=== PATIENT | male | born 1995 | race American Indian/Alaskan Native ===

== ENCOUNTER → 2016-12-03 | Outpatient (CLI) | payer OTHER ==
--- NOTE | 2016-12-06 00:14 | ECHO ---
DATE OF PROCEDURE: 12/03/2016 DATE OF : 1995 AGE: 21 REFERRING PROVIDER: Jarred Figueroa PATIENT LOCATION: Outpatient REASON FOR THE ECHOCARDIOGRAM: Heart murmur. 2D MEASUREMENTS: IVS: 0.85 cm LV: 4.6 cm LVPW: 0.88 cm LA: 3.3 cm Aorta: 2.7 cm IVC: 2.6 cm DOPPLER MEASUREMENTS: Peak velocity across the aortic valve: 1.4 m/s Peak velocity across the LVOT: 0.97 m/s Mitral E: 0.81, mitral A: 0.37 with a ratio of 2.2 Tricuspid valve velocity: 2.3 m/s 2D COMMENTS: 1. Normal left ventricular size, wall thickness and normal global left ventricular systolic function. The estimated left ventricular systolic ejection fraction is 60-65%. 2. Normal left atrium. Normal right atrium and right ventricle. 3. The atrial septum appeared to be normal without evidence of defect or shunt. 4. Normal aortic root. 5. No pericardial effusion seen. 6. The aortic valve, mitral valve, tricuspid valve, and pulmonic valve appear to be normal. The proximal pulmonary artery branches also appear to be normal. 7. The inferior vena cava was mildly enlarged at 2.6 cm, central venous pressure might be elevated, but also can be normal at this age. DOPPLER: It detects trace pulmonic regurgitation, mild tricuspid regurgitation. The calculated pulmonary artery systolic pressure is about 30 mmHg. Assessment of the left ventricular diastolic function was normal. IMPRESSION: 1. Normal global left ventricular systolic and diastolic function. 2. Mild tricuspid regurgitation. 3. Trace pulmonic regurgitation. 4. Mildly dilated inferior vena cava (IVC). Copy To: Jarred Figueroa
== END ==
LOC: M CARPUL 10:19
PROVIDERS: ATTEND Physician Assistant
DX: R01.1 Cardiac murmur, unspecified (principal)